=== PATIENT | male | born 1960 | race Caucasian/White ===

== ENCOUNTER → 2022-04-07 | Outpatient (CLI) | payer OTHER ==
[~2022-04-07] MED LIST: DIATRIZOATE MEGL/DIATRIZOA SOD 30 ML BTL PO ONE; IOPAMIDOL 370 MG/ML 100 ML INFUS..BTL INJ ONE
[2022-04-07 16:59] LABS: CREATININE, SERUM 1.01 mg/dL (0.72-1.25)
== END ==
LOC: CT 15:52
PROVIDERS: ATTEND Surgery
DX: K43.9 Ventral hernia without obstruction or gangrene (principal)
CPT/HCPCS: 36415; 74177; 82565; 84520; Q9963; Q9967

== ENCOUNTER 2022-05-10 06:14 | Inpatient (IN) | payer OTHER ==
[2022-05-05 16:31] LABS: BASOPHILS # (AUTO) 0.1 (0.0-0.1); BASOPHILS % 0.5 % (0.0-1.0); EOSINOPHILS # (AUTO) 0.1 (0.0-0.4); EOSINOPHILS % 0.7 % (0.0-6.0); HEMATOCRIT 41.5 % (38.2-49.6); HEMOGLOBIN 13.7 g/dL (14.0-18.0); LYMPHOCYTES # (AUTO) 3.2 (1.0-3.2); LYMPHOCYTES % 34.1 % (18.0-39.1); MEAN CORPUSCULAR HEMOGLOBIN 29.1 pg (28-32); MEAN CORPUSCULAR VOLUME 88.3 fL (81-99); MONOCYTES # (AUTO) 0.7 (0.2-0.8); MONOCYTES % 7.6 % (4.4-11.3); NEUTROPHILS # (AUTO) 5.4 (2.1-6.9); NEUTROPHILS % 56.8 % (38.7-80.0); PLATELET COUNT 175 x10e3/uL (140-360); RED CELL DISTRIBUTION WIDTH 13.8 % (11.7-14.4)
[2022-05-05 16:48] LABS: CALCIUM 9.4 mg/dL (8.4-10.2); CREATININE, SERUM 0.97 mg/dL (0.72-1.25)
[~2022-05-10] VITALS: Ht 152.4 cm; Wt 108.6 kg
[2022-05-10] MEDS ORDERED: BUPIVACAINE 0.25% 30ML SDV ONE (08:43)
[2022-05-10] MEDS ORDERED: FENTANYL CITRATE/PF 100MCG/2 ML INJ ONE (09:54)
[2022-05-10] MEDS ORDERED: MIDAZOLAM HCL 2 MG/2 ML VIAL ONE (09:54)
[2022-05-10] MEDS ORDERED: ROPIVACAINE 246.25 MG, EPINEPHRINE HCL 1:1000 1ML 0.5 MG, CLONIDINE HCL 0.08 MG, KETORO... INJ ONE ×5 (10:45)
[2022-05-10] MEDS ORDERED: KETOROLAC TROMETHAMINE 30 MG/ML VIAL IV PRN (11:45)
[2022-05-10] MEDS: SODIUM CHLORIDE 0.9% 1000ML 1,000 ML IV SCH ×2 (11:45→21:52)
[2022-05-10] MEDS ORDERED: HYDROCODONE/APAP 7.5MG-325MG 1 EA TAB PO PRN (11:45)
[2022-05-10] MEDS ORDERED: LIDOCAINE HCL 2% LOCAL INJ 5 ML SDV VIAL INJ ONE (13:11)
[2022-05-10] MEDS ORDERED: DEXAMETHASONE SOD PHOS INJ 4 MG/ML SDV ONE (13:11)
[2022-05-10] MEDS ORDERED: GLYCOPYRROLATE INJ 0.2 MG/ML VIAL ONE (13:11)
[2022-05-10] MEDS ORDERED: POVIDONE IODINE 0.05% 0.05 % ML PO ONE (13:11)
[2022-05-10] MEDS ORDERED: EPHEDRINE SULFATE INJ 50 MG/ML VIAL ONE (13:11)
[2022-05-10] MEDS ORDERED: ONDANSETRON HCL INJ 2MG/ML 2ML 2 MG/ML VIAL ONE (13:11)
[2022-05-10] MEDS ORDERED: PROPOFOL IV EMULSION 10 MG/ML 20 ML VIAL ONE (13:11)
[2022-05-10] MEDS ORDERED: NEOSTIGMINE 1 MG/ML 10ML VIAL ONE (13:11)
[2022-05-10] MEDS ORDERED: SUCCINYLCHOLINE CHLORIDE 20 MG/ML 10ML VIAL ONE (13:11)
[2022-05-10] MEDS ORDERED: ROCURONIUM BROMIDE 10 MG/ML 5ML VIAL IV ONE (13:11)
[2022-05-10] MEDS ORDERED: SEVOFLURANE INHAL SOLN 250 ML PEN BTL ONE (13:11)
[2022-05-10 14:00] VITALS: BP 135/87
[2022-05-10 14:51] VITALS: BP 143/97
[2022-05-10 20:00] VITALS: BP 136/89
[2022-05-11 05:01] LABS: BASOPHILS % 0.3 % (0.0-1.0); HEMATOCRIT 40.1 % (38.2-49.6); LYMPHOCYTES # (AUTO) 2.2 (1.0-3.2); LYMPHOCYTES % 19.1 % (18.0-39.1); MEAN CORPUSCULAR HEMOGLOBIN 28.8 pg (28-32); MEAN CORPUSCULAR HGB CONC 32.4 g/dL (31-35); MEAN CORPUSCULAR VOLUME 88.9 fL (81-99); MONOCYTES # (AUTO) 0.9 (0.2-0.8); MONOCYTES % 7.6 % (4.4-11.3); NEUTROPHILS # (AUTO) 8.5 (2.1-6.9); NEUTROPHILS % 72.6 % (38.7-80.0); PLATELET COUNT 171 x10e3/uL (140-360); RED BLOOD COUNT 4.51 x10e6/uL (4.3-5.7); RED CELL DISTRIBUTION WIDTH 13.7 % (11.7-14.4)
[2022-05-11 05:21] LABS: CALCIUM 8.9 mg/dL (8.4-10.2); CREATININE, SERUM 0.79 mg/dL (0.72-1.25)
[2022-05-11] MEDS: SODIUM CHLORIDE 0.9% 1000ML 1,000 ML IV SCH ×2 (08:04→17:53)
[2022-05-11] MEDS: ONDANSETRON HCL INJ 2MG/ML 2ML 2 MG/ML VIAL IV PRN ×3 (08:04→22:05)
[2022-05-11] MEDS: HYDROMORPHONE 1MG/1ML INJ IV PRN ×3 (08:04→22:07)
[2022-05-11 08:25] VITALS: BP 132/86
[2022-05-11 08:33] VITALS: BP 132/86
[2022-05-11 11:34] VITALS: BP 114/72
[2022-05-11 15:49] VITALS: BP 104/71
[2022-05-11 20:00] VITALS: BP 147/88
[2022-05-12 01:53] VITALS: BP 130/82
[2022-05-12] MEDS: SODIUM CHLORIDE 0.9% 1000ML 1,000 ML IV SCH (03:45)
[2022-05-12 05:34] VITALS: BP 142/81
[2022-05-12 08:00] VITALS: BP 138/91
[2022-05-12 09:47] VITALS: BP 138/91
[2022-05-12 12:00] VITALS: BP 120/81
[2022-05-12 16:00] VITALS: BP 155/92
== END 2022-05-12 19:25 | disposition home or self-care (01) | DRG 337 ==
LOC: OR 06:14 → PACU V 11:36 → MED/SURG 14:51 → OBSVTOIN 05-11 16:07
PROVIDERS: ADMIT Surgery; ATTEND Surgery
PROC: 0DN80ZZ Release Small Intestine, Open Approach (ICD-10-PCS; 2022-05-10)
PROC: 0WBF0ZZ Excision of Abdominal Wall, Open Approach (ICD-10-PCS; 2022-05-10)
PROC: 0WUF0JZ Supplement Abdominal Wall with Synthetic Substitute, Open Approach (ICD-10-PCS; principal; 2022-05-10 08:30)
DX: K43.6 Other and unspecified ventral hernia with obstruction, without gangrene (principal)
CPT/HCPCS: 0223U; 36415; 71046; 80048; 85025; 88302; 93005; 96361; G0378; J0171; J0330; J0690; J1100; J1170; J1885; J2001; J2250; J2405; J2710; J2795; J7030

== ENCOUNTER → 2024-02-28 | Day surgery (SDC) | payer OTHER ==
[2024-02-25 16:49] LABS: BASOPHILS # (AUTO) 0.1 (0.0-0.1); BASOPHILS % 0.6 % (0.0-1.0); EOSINOPHILS # (AUTO) 0.1 (0.0-0.4); EOSINOPHILS % 0.9 % (0.0-6.0); HEMOGLOBIN 13.3 g/dL (14.0-18.0); LYMPHOCYTES % 35.3 % (18.0-39.1); MEAN CORPUSCULAR HEMOGLOBIN 29.9 pg (28-32); MEAN CORPUSCULAR HGB CONC 31.7 g/dL (31-35); MEAN CORPUSCULAR VOLUME 94.4 fL (81-99); MONOCYTES # (AUTO) 0.6 (0.2-0.8); MONOCYTES % 7.1 % (4.4-11.3); NEUTROPHILS # (AUTO) 4.7 (2.1-6.9); NEUTROPHILS % 55.6 % (38.7-80.0); PLATELET COUNT 162 x10e3/uL (140-360); RED BLOOD COUNT 4.45 x10e6/uL (4.3-5.7); RED CELL DISTRIBUTION WIDTH 13.2 % (11.7-14.4); WHITE BLOOD COUNT 8.49 x10e3/uL (4.8-10.8)
[~2024-02-28] MED LIST changes: +AMLODIPINE BESYL5 MG PO; -DIATRIZOATE MEGL/DIATRIZOA SOD 30 ML BTL PO ONE; -IOPAMIDOL 370 MG/ML 100 ML INFUS..BTL INJ ONE; +LIDOCAINE HCL 2% LOCAL INJ 5 ML SDV VIAL INJ ONE; +LOSARTAN POTASS25 MG PO; +ONDANSETRON HCL 4 MG ORAL DISINTEGRATING TAB ONE; +PROPOFOL IV EMULSION 10 MG/ML 20 ML VIAL ONE; +PROPOFOL IV EMULSION 50 ML IV ONE; +TADALAFIL5 MG PO
[2024-02-28] MEDS: LACTATED RINGER'S 1,000 ML ONE (13:27)
[2024-02-28 13:50] VITALS: TEMP 98.5
[2024-02-28 14:20] VITALS: BP 115/74; PULSE 81; RESP 16; O2SAT 97
[2024-02-28] MEDS: ONDANSETRON HCL 4 MG ORAL DISINTEGRATING TAB PO ONE (14:20)
== END | disposition home or self-care (01) ==
LOC: OR 11:50
PROVIDERS: ATTEND Internal Medicine Gastroenterology
DX: Z12.11 Encounter for screening for malignant neoplasm of colon (principal); D12.3 Benign neoplasm of transverse colon; K57.30 Diverticulosis of large intestine without perforation or abscess without bleeding; K64.8 Other hemorrhoids; Z71.3 Dietary counseling and surveillance; I10 Essential (primary) hypertension; Z71.89 Other specified counseling; R73.03 Prediabetes; Z01.810 Encounter for preprocedural cardiovascular examination; Z01.812 Encounter for preprocedural laboratory examination; Z79.899 Other long term (current) drug therapy; Z68.31 Body mass index [BMI] 31.0-31.9, adult
CPT/HCPCS: 36415; 45385; 85025; 93005; J2003; J2704 ×2; J7121; Q0162; 45378